=== PATIENT | female | born 1980 | race Caucasian/White ===

== ENCOUNTER 2018-12-24 14:05 | Emergency (ER) | payer BC ==
[2018-12-24] MEDS ORDERED: predniSONE 20 MG Tab PO ONE (14:14)
[2018-12-24] MEDS ORDERED: diphenhydrAMINE 50 MG Cap PO ONE (14:14)
[2018-12-24] MEDS ORDERED: Famotidine 20 MG Tab PO ONE (14:15)
--- NOTE | 2018-12-24 14:20 | EDM.PDOC ---
ED HPI GENERAL MEDICAL PROBLEM - General Chief Complaint: Allergic Reaction Stated Complaint: ALLERGIC REACTION Time Seen by Provider: 12/24/18 14:06 Source of Information: Reports: Patient History Limitations: Reports: No Limitations - History of Present Illness INITIAL COMMENTS - FREE TEXT/NARRATIVE: Approximately half hour ago patient right ear PEEP, AR smoke-filled earache type candy. She began to experience immediate tingling in his tongue and feeling slightly lightheaded. And her abdomen began to tighten up. And she will deliver. Nose had patent. 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 She came to the ED immediately because of sensation. She denies feeling lightheaded or chest pain. She has mild shortness of breath without wheezing. No history of asthma. Or anaphylactic reactions. But in the past she's had problems with pectin and she had some tightness of her throat. She feels some tightness with throat presently. Her speech has not changed. No history of previous epinephrine shots with these allergic reactions. Not . 5 para 01/30/01. Previous surgery C-sections cholecystectomy ED ROS ALLERGIC REACTION - Review of Systems Review Of Systems: ROS reveals no pertinent complaints other than HPI. ED EXAM GENERAL NO PERIP PULSE - Physical Exam Exam: See Below Text/Narrative:: Pleasant hyperalert anxious asthenic woman without difficulty of speaking, stridor, wheezing, tachypnea or swelling of her lips Exam Limited By: No Limitations General Appearance: Alert, Anxious Eye Exam: Bilateral Eye: Normal Inspection Ears: Normal External Exam, Normal Canal, Hearing Grossly Normal, Normal TMs Nose: Normal Inspection Throat/Mouth: Normal Inspection, Normal Lips, Normal Teeth, Normal Gums, Normal Oropharynx, Normal Voice, Other (No stridor no angioedema of the oral mucosa no edema of the uvula or posterior pharynx) Head: Atraumatic, Normocephalic Neck: Normal Inspection, Supple, Non-Tender, Full Range of Motion Respiratory/Chest: No Respiratory Distress, Lungs Clear, No Accessory Muscle Use , Chest Non-Tender Cardiovascular: Normal Peripheral Pulses, Regular Rate, Rhythm, No Edema, No Gallop, No JVD, No Murmur, No Rub GI/Abdominal: Normal Bowel Sounds, Soft, Non-Tender, No Organomegaly, No Distention, No Abnormal Bruit (Female) Exam: Deferred Rectal (Female) Exam: Deferred Back Exam: Normal Inspection Extremities: Normal Inspection, Normal Range of Motion, Non-Tender Neurological: Alert, Oriented, CN II-XII Intact, Normal Cognition, Normal Gait, Normal Reflexes, No Motor/Sensory Deficits Psychiatric: Anxious Skin Exam: Warm, Dry, Intact, Decubitus, Other (Upper there is sent of her anterior thorax and neck mild flushing. Even her notes this is not normal for her.) Course - Orders/Labs/Meds Orders: Active Orders 24 hr Category Date Time Status Famotidine [Pepcid] Med 12/24/18 14:15 Once 40 mg PO ONETIME ONE diphenhydrAMINE [Benadryl] Med 12/24/18 14:14 Once 50 mg PO ONETIME ONE predniSONE Med 12/24/18 14:14 Once 40 mg PO ONETIME ONE Departure - Departure Time of Disposition: 14:25 (Allergic reaction to pectin with tightness for throat trace of shortness of breath and cutaneous dilation anterior upper thorax dermis coupled with marked anxiety and hyper alert response. With oral Benadryl 50 mg prednisone 40 mg Pepcid 20 mg. No epinephrine shot needed. Patient reassured. Patient was stable status followed for an hour in the ED and then discharged.) Disposition: Home, Self-Care 01 Condition: Good Clinical Impression: Allergic reaction Qualifiers: Encounter type: initial encounter Qualified Code(s): T78.40XA - Allergy, unspecified, initial encounter - Discharge Information *PRESCRIPTION DRUG MONITORING PROGRAM REVIEWED*: Not Applicable *COPY OF PRESCRIPTION DRUG MONITORING REPORT IN PATIENT DANIELA: Not Applicable Referrals: Brittany Mondragon, [facility] [Primary Care Provider] - - My Orders Last 24 Hours: My Active Orders 12/24/18 14:14 diphenhydrAMINE [Benadryl] 50 mg PO ONETIME ONE predniSONE 40 mg PO ONETIME ONE 12/24/18 14:15 Famotidine [Pepcid] 40 mg PO ONETIME ONE - Assessment/Plan Last 24 Hours: My Active Orders 12/24/18 14:14 diphenhydrAMINE [Benadryl] 50 mg PO ONETIME ONE predniSONE 40 mg PO ONETIME ONE 12/24/18 14:15 Famotidine [Pepcid] 40 mg PO ONETIME ONE
== END 2018-12-24 15:25 | disposition home or self-care (01) ==
LOC: FB.ED 14:05
DX: R07.0 Pain in throat (principal); T47.6X5A Adverse effect of antidiarrheal drugs, initial encounter
CPT/HCPCS: 99283; A9270